=== PATIENT | male | born 1980 | race Two or more races ===

== ENCOUNTER 2022-07-09 14:08 | Inpatient (IN) | payer OTHER ==
[~2022-07-09] VITALS: Ht 170.2 cm; Wt 75.0 kg
[2022-07-09 20:03] LABS: BASOPHILS % (AUTO) 0.4 % (0.0-2.0); EOSINOPHILS % (AUTO) 1.3 % (1.0-6.0); HEMATOCRIT 41.9 % (41-53); LYMPHOCYTES # (AUTO) 2.3 K/uL (1.0-4.8); LYMPHOCYTES % (AUTO) 28.3 % (22.0-44.0); MEAN CORPUSCULAR HEMOGLOBIN 29.9 pg (26.0-34.0); MEAN CORPUSCULAR HGB CONC 33.4 G/dL (31.0-37.0); MEAN CORPUSCULAR VOLUME 90 fL (80-100); MONOCYTES # (AUTO) 0.5 K/uL (0.1-1.0); MONOCYTES % (AUTO) 5.8 % (2.0-9.0); NEUTROPHILS # (AUTO) 5.1 K/uL (1.8-7.7); NEUTROPHILS % (AUTO) 64.2 % (40.0-70.0); PLATELET COUNT (AUTO) 338 K/uL (150-450); RED BLOOD CELL COUNT(AUTO) 4.67 MIL/uL (4.50-5.90); RED CELL DISTRIBUTION WIDTH 13.8 % (11.5-14.5)
[2022-07-09 20:22] LABS: ANION GAP 6 mmol/L (8-16); CALCIUM, TOTAL 8.5 mg/dL (8.8-10.5); CARBON DIOXIDE 28 mmol/L (22-29); CHLORIDE 105 mmol/L (98-107); CREATININE 0.65 mg/dL (0.60-1.30); GLOMERULAR FILTR. RATE CALC > 60 mL/min (>60); GLUCOSE,RANDOM 115 mg/dL (70-110); POTASSIUM 3.9 mmol/L (3.5-5.1); SODIUM SERUM 139 mmol/L (136-145); UREA NITROGEN, BLOOD 11 mg/dL (7-18)
[2022-07-09 20:28] LABS: ALANINE AMINOTRANSFERASE 23 U/L (12-78); ALBUMIN 3.6 g/dL (3.4-5.0); ALKALINE PHOSPHATASE 110 U/L (46-116); ASPARTATE AMINOTRANSFERASE 21 U/L (15-37); BILIRUBIN,TOTAL 0.4 mg/dL (0.1-1.0); TOTAL PROTEIN, SERUM 7.6 g/dL (6.4-8.2)
[2022-07-09] MEDS ORDERED: ONDANSETRON HCL 4 MG/2 ML VIAL IVP PRN (20:30)
[2022-07-09] MEDS ORDERED: MAGNESIUM HYDROXIDE SUSPENSION 30 ML UDCUP PO PRN (20:30)
[2022-07-09] MEDS ORDERED: LORazepam 2 MG/ML VIAL IVP PRN (20:30)
[2022-07-09] MEDS ORDERED: ACETAMINOPHEN 325 MG TABLET PO PRN (20:30)
[2022-07-09] MEDS ORDERED: SODIUM CHLORIDE 0.9% 1,000 ML IV ONE (20:30)
[2022-07-09] MEDS: ZOLPIDEM TARTRATE 5 MG TABLET PO PRN (20:59)
[2022-07-09] MEDS: FAMOTIDINE 20 MG TABLET PO SCH (20:59)
[2022-07-09 21:06] LABS: COVID AG,FIA SOURCE NASAL SWAB
[2022-07-09 21:41] LABS: AMPHET/METH SCREEN,URINE POSITIVE (NEGATIVE); BARBITURATE SCREEN, URINE NEGATIVE (NEGATIVE); BENZODIAZEPINES SCREEN,URINE NEGATIVE (NEGATIVE); CANNABINOID SCREEN,URINE NEGATIVE (NEGATIVE); COCAINE SCREEN,URINE NEGATIVE (NEGATIVE); METHADONE SCREEN, URINE NEGATIVE (NEGATIVE); OPIATE SCREEN,URINE POSITIVE (NEGATIVE); PHENCYCLIDINE SCREEN,URINE NEGATIVE (NEGATIVE)
[2022-07-09 22:49] VITALS: BP 144/72
[2022-07-10 03:20] VITALS: BP 133/71
[2022-07-10] MEDS: FAMOTIDINE 20 MG TABLET PO SCH ×2 (07:58→19:47)
[2022-07-10 08:01] VITALS: BP 146/71
[2022-07-10] MEDS: LORazepam 2 MG/ML VIAL IVP PRN ×2 (09:19→15:23)
[2022-07-10 15:12] VITALS: BP 132/78
[2022-07-10] MEDS: ZOLPIDEM TARTRATE 5 MG TABLET PO PRN (19:47)
[2022-07-11] MEDS: FAMOTIDINE 20 MG TABLET PO SCH ×2 (08:07→21:00)
[2022-07-11 15:21] VITALS: BP 147/89
[2022-07-11] MEDS: ONDANSETRON HCL 4 MG/2 ML VIAL IVP PRN (18:32)
[2022-07-11 20:00] VITALS: BP 139/78
[2022-07-11] MEDS ORDERED: METOCLOPRAMIDE HCL 5 MG/ML 2 ML VIAL IVP ONE (22:00)
[2022-07-12] MEDS: ONDANSETRON HCL 4 MG/2 ML VIAL IVP PRN ×2 (00:27→06:39)
[2022-07-12] MEDS ORDERED: RINGERS SOLUTION,LACTATED 1,000 ML IV ONE (03:15)
[2022-07-12 04:49] VITALS: BP 135/74
[2022-07-12 07:33] VITALS: BP 137/78
[2022-07-12] MEDS: FAMOTIDINE 20 MG TABLET PO SCH ×2 (08:34→21:06)
[2022-07-12] MEDS ORDERED: LOPERAMIDE HCL 2 MG CAPSULE PO PRN (12:30)
[2022-07-12 15:05] VITALS: BP 156/95
[2022-07-12 21:12] VITALS: BP 142/73
[2022-07-13 04:23] VITALS: BP 128/57
[2022-07-13 08:03] VITALS: BP 144/87
[2022-07-13] MEDS: FAMOTIDINE 20 MG TABLET PO SCH (09:00)
== END 2022-07-13 12:10 | DRG 897 ==
LOC: EMS 14:14 → 6S 20:01
PROVIDERS: ADMIT Internal Medicine; ATTEND Internal Medicine
DX: F11.13 Opioid abuse with withdrawal (principal); F17.200 Nicotine dependence, unspecified, uncomplicated; Z20.822 Contact with and (suspected) exposure to COVID-19; F15.13 Other stimulant abuse with withdrawal; Z71.6 Tobacco abuse counseling
CPT/HCPCS: 80053; 80307; 85025; 93005; 99285; G0480; J2060; J2405; J2765; J7030; J7120